=== PATIENT | female | born 1965 | race Caucasian/White ===

== ENCOUNTER → 2017-06-17 | Outpatient (CLI) | payer OTHER ==
[~2017-06-17] MED LIST: E-Z-PAQUE 96% w/w SUSP 176GM BTL As Ordered
== END ==
LOC: M RAD 08:11
DX: Z98.84 Bariatric surgery status (principal); R63.5 Abnormal weight gain

== ENCOUNTER → 2017-07-17 | Outpatient (REF) | payer OTHER | LOC: M LAB REF 12:37 | DX: D48.5 Neoplasm of uncertain behavior of skin (principal) ==

== ENCOUNTER → 2020-02-02 | Outpatient (CLI) | payer OTHER ==
[~2020-02-02] MED LIST changes: -E-Z-PAQUE 96% w/w SUSP 176GM BTL As Ordered; +ISOVUE-370 76% 100ML VIAL As Ordered ONE
--- NOTE | 2020-02-02 14:32 | REPVR ---
PROCEDURE INFORMATION: Exam: CT Neck With Contrast Exam date and time: 02/02/2020 2:11 PM Age: 54 years old Clinical indication: Mass, lump, or swelling in neck; Additional info: Mass right subclavicular TECHNIQUE: Imaging protocol: Computed tomography images of the neck with intravenous contrast. Radiation optimization: All CT scans at this facility use at least one of these dose optimization techniques: automated exposure control; mA and/or kV adjustment per patient size (includes targeted exams where dose is matched to clinical indication); or iterative reconstruction. Contrast material: ISOVUE 370; Contrast volume: 75 ml; Contrast route: INTRA-ARTERIAL (ARTERIAL); COMPARISON: None available. FINDINGS: Nasopharynx: Unremarkable. Oropharynx: Unremarkable. No significant tonsillar enlargement. Hypopharynx: Unremarkable. Larynx: Unremarkable. Normal epiglottis. Retropharyngeal space: Unremarkable. Submandibular/Parotid glands: Normal. Glands are normal in size. Thyroid: Normal. No enlarged or calcified nodules. Lymph nodes: Unremarkable. No lymphadenopathy. Trachea: Visualized trachea is unremarkable. Lungs: Unremarkable as visualized. Bones/joints: Unremarkable. No acute fracture. Soft tissues: Unremarkable. No significant soft tissue swelling. IMPRESSION: No acute findings. Specifically, no right supraclavicular mass identified. Electronically signed by: Meri Nick On 02/02/2020 14:32:17 PM
== END ==
LOC: M RAD 13:56
PROVIDERS: ATTEND Internal Medicine Cardiovascular Disease
DX: R22.1 Localized swelling, mass and lump, neck (principal)

== ENCOUNTER → 2022-07-22 | Outpatient (REF) | payer OTHER | LOC: M SFHCDERM 17:37 | PROVIDERS: ATTEND Nurse Practitioner Family | DX: L57.0 Actinic keratosis (principal) ==

== ENCOUNTER 2023-05-30 07:51 | Inpatient (IN) | payer OTHER ==
[~2023-05-30] VITALS: Ht 154.9 cm; Wt 72.7 kg
[2023-05-30] MEDS ORDERED: LEXA1TAB PO (10:33)
[2023-05-30] MEDS ORDERED: PANT40TA29 PO (10:33)
[2023-05-30] MEDS ORDERED: NEBI10TA PO (10:33)
[2023-05-30] MEDS ORDERED: HYDR-3490 PO (10:33)
[2023-05-30] MEDS ORDERED: POTA1TAB23 PO (10:33)
[2023-05-30] MEDS ORDERED: SEMA2.4P INJ (10:33)
[2023-05-30] MEDS ORDERED: ONDANSETRON 4MG 2ML VIAL IV ONE (10:50)
[2023-05-30] MEDS ORDERED: MORPHINE 4 MG/ML 1ML VIAL IV PRN (10:50)
[2023-05-30 11:24] LABS: HEMOGLOBIN 14.7 g/dl (12.0-15.5); MEAN CORPUSCULAR HEMOGLOBIN 32.2 pg (27.0-33.0); MEAN CORPUSCULAR HGB CONC 34.2 g/dl (32.0-36.5); MEAN CORPUSCULAR VOLUME 94.3 fl (80.0-96.0); PLATELET COUNT, AUTOMATED 277 10^3/uL (150-450); RED BLOOD COUNT 4.56 10^6/uL (4.00-5.40); WHITE BLOOD COUNT 12.4 10^3/uL (4.0-10.0)
[2023-05-30 11:56] LABS: BLOOD UREA NITROGEN 13 MG/DL (9-23); CALCIUM LEVEL 9.3 MG/DL (8.5-10.1); CARBON DIOXIDE LEVEL 30 MMOL/L (20-31); CHLORIDE LEVEL 104 MMOL/L (98-107); CREATININE FOR GFR 0.49 MG/DL (0.55-1.30); GLOMERULAR FILTRATION RATE > 60.0 (>51); GLUCOSE, FASTING 96 MG/DL (60-100); POTASSIUM SERUM 4.3 MMOL/L (3.5-5.1); SODIUM LEVEL 143 MMOL/L (136-145)
[2023-05-30] MEDS ORDERED: NS 1,000 ML IV SCH (12:05)
[2023-05-30] MEDS ORDERED: KETOROLAC 30 MG/ML 1ML VIAL IV ONE (12:10)
[2023-05-30] MEDS ORDERED: MORPHINE 10 MG/ML 1ML VIAL IV PRN (12:10)
[2023-05-30] MEDS ORDERED: GLUCAGON INJ 1MG VIAL SC PRN (12:10)
[2023-05-30] MEDS ORDERED: DEXTROSE 50% 50ML SYRINGE IV PRN (12:10)
[2023-05-30] MEDS ORDERED: GLUCOSE 4GM CHEW TABLET PO PRN (12:10)
[2023-05-30] MEDS ORDERED: ONDANSETRON 4MG 2ML VIAL IV PRN (12:15)
[2023-05-30] MEDS ORDERED: MED REC IN PROGRESS XX SCH (12:45)
[2023-05-30 12:54] LABS: PROTHROMBIN TIME 12.9 SECONDS (12.5-14.5)
[2023-05-30 12:55] LABS: PARTIAL THROMBOPLASTIN TIME 26.6 SECONDS (24.8-34.2)
[2023-05-30] MEDS ORDERED: HOME MED LIST COMPLETE! XX SCH (13:05)
[2023-05-30] MEDS: D5W/0.45% SODIUM CHLORIDE 1,000 ML IV SCH ×2 (13:08→21:54)
[2023-05-30 14:50] VITALS: BP 166/78; TEMP 97.7; O2SAT 99
[2023-05-30] MEDS: MORPHINE 4 MG/ML 1ML VIAL IV PRN ×2 (15:28→21:54)
[2023-05-30 21:05] VITALS: BP 121/70; TEMP 97.5; O2SAT 99
[2023-05-31] VITALS (7 sets, daily range): BP systolic 142–151; BP diastolic 74–82; TEMP 97–98.5; O2SAT 90–96
[2023-05-31] MEDS: MORPHINE 4 MG/ML 1ML VIAL IV PRN ×4 (01:16→20:42)
[2023-05-31] MEDS: D5W/0.45% SODIUM CHLORIDE 1,000 ML IV SCH ×2 (06:17→18:44)
[2023-05-31] MEDS ORDERED: KETOROLAC 30 MG/ML 1ML VIAL IV ONE (08:00)
[2023-05-31] MEDS ORDERED: propofoL 200 MG/20 ML VIAL As Ordered ONE (12:34)
[2023-05-31] MEDS ORDERED: ROCURONIUM BROMIDE 50MG/5ML VIAL As Ordered ONE (12:34)
[2023-05-31] MEDS ORDERED: MIDAZOLAM INJ 2MG/2ML VIAL As Ordered ONE (12:35)
[2023-05-31] MEDS ORDERED: fentaNYL 100 MCG/2 ML INJECTION As Ordered ONE (12:37)
[2023-05-31] MEDS ORDERED: METOCLOPRAMIDE INJ 10MG/2ML VIAL As Ordered ONE (12:38)
[2023-05-31] MEDS ORDERED: LIDOCAINE 2% 100MG/5ML SDV (FOR ANES.) As Ordered ONE (12:39)
[2023-05-31] MEDS ORDERED: diphenhydrAMINE 50MG/ML VIAL As Ordered ONE (12:39)
[2023-05-31] MEDS ORDERED: ceFAZolin 2 GM/D5W 50 ML IV BAG IV ONE (13:33)
[2023-05-31] MEDS ORDERED: ACETAMINOPHEN 1000MG 100ML IV BAG As Ordered ONE (13:37)
[2023-05-31] MEDS ORDERED: SUGAMMADEX SODIUM 500 MG/5 ML VIAL (BRIDION) As Ordered ONE (13:38)
[2023-05-31] MEDS ORDERED: ONDANSETRON 4MG 2ML VIAL As Ordered ONE (13:38)
[2023-05-31] MEDS ORDERED: HYDROmorphone HCL 2MG/ML 1ML VIAL As Ordered ONE (13:42)
[2023-05-31] MEDS ORDERED: PHENYLephrine 500MCG 5ML (100MCG/ML) SYRINGE As Ordered ONE (14:04)
[2023-05-31] MEDS ORDERED: diphenhydrAMINE 50MG/ML VIAL IV PRN (14:25)
[2023-05-31] MEDS ORDERED: HYDROMORPHONE HCL 0.5 MG/ 0.5 ML SYRINGE IV PRN (14:25)
[2023-05-31] MEDS ORDERED: METOCLOPRAMIDE INJ 10MG/2ML VIAL IV PRN (14:25)
[2023-05-31] MEDS ORDERED: ONDANSETRON 4MG 2ML VIAL IV PRN (14:25)
[2023-05-31] MEDS ORDERED: oxyCODONE 5MG TAB PO PRN (14:25)
[2023-05-31] MEDS ORDERED: MEPERIDINE 25 MG/ML 1ML VIAL IV PRN (14:25)
[2023-05-31] MEDS ORDERED: fentaNYL 100 MCG/2 ML INJECTION IV PRN (14:25)
[2023-05-31] MEDS: ceFAZolin SOD 2 GM in IV 1 EA IV SCH (20:41)
[2023-05-31] MEDS ORDERED: ACETAMINOPHEN TAB 650MG DOSE (2X325MG) PO PRN (20:50)
[2023-05-31] MEDS ORDERED: ACETAMINOPHEN 500 MG TAB PO PRN (20:50)
[2023-06-01 02:34] VITALS: BP 139/73; TEMP 98.1; O2SAT 94
[2023-06-01] MEDS: ceFAZolin SOD 2 GM in IV 1 EA IV SCH (04:00)
[2023-06-01] MEDS: MORPHINE 4 MG/ML 1ML VIAL IV PRN ×2 (04:01→08:45)
[2023-06-01] MEDS ORDERED: ACETAMINOPHEN 500 MG TAB PO SCH (06:00)
[2023-06-01 06:07] VITALS: BP 140/74; TEMP 98.2; O2SAT 93
[2023-06-01] MEDS ORDERED: NALOXONE INJ 0.4MG/1ML VIAL IV PRN (09:05)
[2023-06-01] MEDS ORDERED: SENOKOT S TAB PO PRN (09:05)
[2023-06-01] MEDS ORDERED: MIRALAX *UNIT DOSE* 17GM PACKET PO PRN (09:05)
[2023-06-01] MEDS ORDERED: MOM 30ML SUSPENSION UDC PO PRN (09:05)
[2023-06-01] MEDS ORDERED: NS 1,000 ML IV SCH (09:30)
[2023-06-01 09:51] LABS: HEMATOCRIT 34.3 % (36.0-47.0); MEAN CORPUSCULAR HEMOGLOBIN 32.7 pg (27.0-33.0); MEAN CORPUSCULAR HGB CONC 33.2 g/dl (32.0-36.5); MEAN CORPUSCULAR VOLUME 98.3 fl (80.0-96.0); PLATELET COUNT, AUTOMATED 208 10^3/uL (150-450); RED BLOOD COUNT 3.49 10^6/uL (4.00-5.40); WHITE BLOOD COUNT 12.5 10^3/uL (4.0-10.0)
[2023-06-01 09:52] LABS: HEMOGLOBIN 11.4 g/dl (12.0-15.5)
[2023-06-01 09:58] LABS: BLOOD UREA NITROGEN 9 MG/DL (9-23); CALCIUM LEVEL 8.1 MG/DL (8.5-10.1); CARBON DIOXIDE LEVEL 33 MMOL/L (20-31); CHLORIDE LEVEL 107 MMOL/L (98-107); CREATININE FOR GFR 0.51 MG/DL (0.55-1.30); GLOMERULAR FILTRATION RATE > 60.0 (>51); GLUCOSE, FASTING 116 MG/DL (60-100); POTASSIUM SERUM 3.4 MMOL/L (3.5-5.1); SODIUM LEVEL 145 MMOL/L (136-145)
[2023-06-01] MEDS ORDERED: ENOXAPARIN 40MG/0.4ML SYRINGE (J1650 PER 10MG) SC ONE (10:00)
[2023-06-01] MEDS ORDERED: oxyCODONE 5MG TAB PO SCH (10:00)
[2023-06-01] MEDS ORDERED: PERC5TAB12 PO (10:08)
[2023-06-01] MEDS ORDERED: SENN-52 PO (10:08)
[2023-06-01] MEDS ORDERED: MIRA1POW3 PO (10:08)
[2023-06-01] MEDS ORDERED: KETOROLAC 30 MG/ML 1ML VIAL IV SCH (12:00)
[2023-06-02] MEDS ORDERED: ENOXAPARIN 40MG/0.4ML SYRINGE (J1650 PER 10MG) SC SCH (09:00)
== END 2023-06-01 12:30 | disposition home or self-care (01) | DRG 494 ==
LOC: EDBD 07:51 → M ED 07:51 → M ED INP 12:05 → ENRESERV 13:49 → M MS5PR 14:45
PROVIDERS: ADMIT General Practice; ATTEND General Practice
PROC: 0SSF04Z Reposition Right Ankle Joint with Internal Fixation Device, Open Approach (ICD-10-PCS; 2023-05-31)
PROC: 0QSJ04Z Reposition Right Fibula with Internal Fixation Device, Open Approach (ICD-10-PCS; principal; 2023-05-31 12:30)
DX: S82.851A Displaced trimalleolar fracture of right lower leg, initial encounter for closed fracture (principal); F32.A Depression, unspecified; Z98.84 Bariatric surgery status; Z88.0 Allergy status to penicillin; Z87.891 Personal history of nicotine dependence; Z79.899 Other long term (current) drug therapy; Z20.822 Contact with and (suspected) exposure to COVID-19; W10.8XXA Fall (on) (from) other stairs and steps, initial encounter; Y92.009 Unspecified place in unspecified non-institutional (private) residence as the place of occurrence of the external cause

== ENCOUNTER → 2023-06-09 | Outpatient (CLI) | payer OTHER ==
[~2023-06-09] MED LIST changes: +HYDR-3490 PO; -ISOVUE-370 76% 100ML VIAL As Ordered ONE; +LEXA1TAB PO; +MIRA1POW3 PO; +NEBI10TA PO; +PANT40TA29 PO; +PERC5TAB12 PO; +POTA1TAB23 PO; +SEMA2.4P INJ; +SENN-52 PO
== END ==
LOC: M SOG 08:01
PROVIDERS: ATTEND Physician Assistant
DX: S82.851A Displaced trimalleolar fracture of right lower leg, initial encounter for closed fracture (principal); Y93.9 Activity, unspecified; Y92.9 Unspecified place or not applicable

== ENCOUNTER → 2023-07-04 | Outpatient (CLI) | payer OTHER ==
[~2023-07-04] MED LIST changes: -MIRA1POW3 PO; +MIRA33506 PO
== END ==
LOC: M SOG 07:56
PROVIDERS: ATTEND Orthopaedic Surgery
DX: S82.851A Displaced trimalleolar fracture of right lower leg, initial encounter for closed fracture (principal); Y92.9 Unspecified place or not applicable; Y93.9 Activity, unspecified

== ENCOUNTER → 2023-08-15 | Outpatient (CLI) | payer OTHER | LOC: M SOG 11:16 | PROVIDERS: ATTEND Physician Assistant | DX: S82.851A Displaced trimalleolar fracture of right lower leg, initial encounter for closed fracture (principal) ==

== ENCOUNTER → 2023-10-10 | Outpatient (CLI) | payer OTHER | LOC: M SOG 07:57 | PROVIDERS: ATTEND Orthopaedic Surgery | DX: S82.851A Displaced trimalleolar fracture of right lower leg, initial encounter for closed fracture (principal); Y93.9 Activity, unspecified; Y92.9 Unspecified place or not applicable ==